=== PATIENT | male | born 2000 | race Two or more races ===

== ENCOUNTER 2024-06-27 19:31 | Emergency (ER) | payer MEDICARE, OTHER ==
[~2024-06-27] VITALS: Ht 180.3 cm; Wt 110.8 kg
[~2024-06-27 19:31] MED LIST: IBUP-1986 PO
[2024-06-27] MEDS: ondansetron 4mg rapidly disintigrating tab PO ONE (22:15)
[2024-06-27] MEDS: HYDROcodone/acetaminophen 5mg/325mg tablet PO ONE (22:16)
[2024-06-27] MEDS: amox tr/potassium clavulanate 875/125mg TAB PO ONE (22:20)
[2024-06-27] MEDS ORDERED: AMOX-115 PO (22:22)
[2024-06-27] MEDS ORDERED: HYDR-3965 PO (22:22)
[2024-06-27 22:23] VITALS: BP 142/76; PULSE 89; RESP 18; TEMP 98.6; O2SAT 99
== END 2024-06-27 22:28 | disposition home or self-care (01) ==
LOC: ER 19:31
DX: K08.89 Other specified disorders of teeth and supporting structures (principal); F12.90 Cannabis use, unspecified, uncomplicated; Z79.1 Long term (current) use of non-steroidal anti-inflammatories (NSAID)
CPT/HCPCS: 99284

== ENCOUNTER 2024-09-22 12:34 | Emergency (ER) | payer SELFPAY ==
[~2024-09-22] VITALS: Ht 180.3 cm; Wt 91.9 kg
[2024-09-22 12:50] VITALS: BP 135/73; PULSE 98; O2SAT 98
[2024-09-22 14:09] VITALS: RESP 17; TEMP 98.3
== END 2024-09-22 14:09 | disposition home or self-care (01) ==
LOC: ER 12:34
DX: J22 Unspecified acute lower respiratory infection (principal); J45.909 Unspecified asthma, uncomplicated; F12.90 Cannabis use, unspecified, uncomplicated; Z91.013 Allergy to seafood
CPT/HCPCS: 99282

== ENCOUNTER 2025-03-13 09:33 | Emergency (ER) | payer OTHER ==
[~2025-03-13] VITALS: Ht 180.3 cm; Wt 113.6 kg
[2025-03-13 09:40] VITALS: BP 128/97; PULSE 94; TEMP 97.7; O2SAT 100
--- NOTE | 2025-03-13 10:17 | Physician Documentation ---
History of Present Illness ~ Chief Complaint: Neck pain Stated Complaint: NECK PAIN Time Seen by MD: 13:41 Primary Medical Doctor: No PMD HPI This is a 25-year-old male who presents with right-sided neck pain onset suddenly after he popped his neck patient reports he does have history of some neck problems including a pinched nerve. Patient reports pain is worse when trying to turn his neck to the right. Patient reports some mild paresthesias to his fingertips. Patient reports no loss of bowel or bladder control or new weakness in extremities. Medication Reconciliation Allergies: Uncoded Allergies: SHELLFISH (Allergy, Intermediate, 06/27/24) PT STATES HE GETS ITCHY THROAT WHEN EATING, BUT DENIES ANAPHALAXIS Scheduled Cyclobenzaprine* (Cyclobenzaprine*), 1 TAB PO TID Ibuprofen (Ibuprofen), 1 TAB PO Q8H Ibuprofen (Ibuprofen), 1 TAB PO Q8H Lidocaine (Lidoderm), 1 PATCH TOP DAILY Past Medical History Past Medical History: No Pertinent History Past Surgical History: no surgical history Alcohol Use: Occasionally Drug Use: marijuana Lives In: Home Occupation: student Review of Systems ROS Right-sided neck pain as stated above in the HPI, otherwise all systems are reviewed and negative. Physical Exam Vital Signs: Temperature: 97.7, Source: Temporal, Heart Rate: 94, Respiratory Rate: 18, BP: 128/97, Pulse Oximetry: 100, Weight: 113.640 Oxygen Flow Rate: 0 Physical Exam VITALS: Reviewed and as above. GENERAL: Alert, nontoxic appearing, no apparent distress. HEENT: Mild tenderness to palpation to right upper aspect of neck, ROM of neck limited by pain, no central C-spine tenderness to palpation, no cervical lymp hadenopathy RESPIRATORY: No increased work of breathing, no respiratory distress, speaking in full clear sentences NEURO: Sensation and strength intact and equal in all limbs Progress Results/Orders Results/Orders Completed Orders - JARVIS SAM JUNIOR UNDERWRITER Ketorolac Trometh 15mg/Ml Vial (Toradol (03/13/25 13:35) Lidocaine 5% Patch (Lidoderm 5% Patch) (03/13/25 13:35) Cyclobenzaprine Tablet (Flexeril Tablet) (03/13/25 13:55) Medications Received in ER Medications (Trade) Dose Ordered Sig/Anabel Route PRN Reason Start Time Stop Time Status Last Admin Dose Admin (Toradol injection) 15 mg ONCE ONCE IM 03/13/25 13:35 03/13/25 13:36 DC 03/13/25 13:52 15 MG (Lidoderm 5% Patch) 1 patch ONCE ONCE TP 03/13/25 13:35 03/13/25 13:36 DC 03/13/25 13:53 1 PATCH (Flexeril tablet) 10 mg ONCE ONCE PO 03/13/25 13:55 03/13/25 13:56 DC 03/13/25 14:01 10 MG Vital Signs 03/13/25 03/13/25 09:40 13:52 Temp 97.7 Pulse 94 Resp 18 8 B/P (MAP) 128/97 Pulse Ox 100 O2 Flow Rate 0 Medical Decision Making Findings MSE performed in triage and patient returned to ED lobby by nursing staff This 25-year-old male presented with one day of right-sided neck pain without new onset of weakness or numbness in extremities, pain was reproducible with the patient turning his head to the neck and physical exam demonstrated some tenderness to palpation to the right lateral neck though no tenderness to palpation to central C-spine, patient is otherwise well-appearing and remainder of physical exam was benign. Suspect a soft tissue injury likely cervical muscle strain as the most likely cause of patient's pain though symptoms could also represent cervical radiculopathy or torticollis, patient medicated for pain. Patient is hemodynamically stable and appropriate for outpatient follow up, patient provided home care instructions and return to care precautions which he verbalized understanding of. Differential Dx:Considerations: Include: Cervical muscle spasm, Discitis, DJD, Meningitis, Torticollis, Vertebral artery dissect. Departure Disposition: HOME / SELF CARE / HOMELESS Impression: Primary Impression: Neck pain Condition: Improved Discharge Instructions: Cervical Sprain, Acute Torticollis, Adult Additional Instructions: As we discussed follow up with her primary care provider for possible referral for physical therapy. Please take the medications as prescribed, take the ibuprofen with food to avoid stomach upset, do not drive or operate heavy machinery while taking the muscle relaxer. Do not take the ibuprofen or thorax 12 hours as you received a Toradol injection in the emergency department which replaces in this medication. Please follow up with your primary care provider in the next few days. Please return to the emergency department for any new or worsening concerning symptoms including new numbness or weakness in your lying arms or legs or loss of bowel or bladder control. Departure Forms: Excuse form Work or School Excused From: Work Excuse beginning now through the following date: Mar 17, 2025 May Return but still avoid physical Activity from now until: Mar 17, 2025 May Return to full physical activity as of: Mar 17, 2025 Additional Instructions: Returned to work sooner if feeling better Referrals: NO PRIMARY CARE PROVIDER (PCP) Prescriptions Ibuprofen (Ibuprofen) 800 Mg Tablet 1 TAB PO Q8H for pain for 10 Days, #30 TAB 0 Refills Prov: JARVIS SAM 03/13/25 Lidocaine (Lidoderm) 5 % Adh..patch 1 PATCH TOP DAILY for 30 Days, #10 PATCH 0 Refills may wear up to 12 hours Prov: JARVIS SAM 03/13/25 Cyclobenzaprine* (Cyclobenzaprine*) 10 Mg Tablet 1 TAB PO TID, #15 TAB Prov: JARVIS SAM 03/13/25 Education Educated: Patient Educated regarding: diagnosis, treatment, prognosis, need for follow up Signature Scribe Signature: No scribe Attestation: The note accurately reflects work and decisions made by me.ELEAZAR Sullivan 03/13/25 20:48 JARVIS SAM Mar 13, 2025 10:17
[2025-03-13 13:52] VITALS: RESP 8
[2025-03-13] MEDS: ketorolac trometh 15mg/ml vial 15 MG/ML ML IM ONE (13:52)
[2025-03-13] MEDS: LIDOcaine 5% patch TP ONE (13:53)
[2025-03-13] MEDS ORDERED: IBUP-1986 PO (13:54)
[2025-03-13] MEDS ORDERED: CYCL-1 PO (13:54)
[2025-03-13] MEDS ORDERED: LIDO-52 TOP (13:54)
[2025-03-13] MEDS: cyclobenzaprine 10mg tablet PO ONE (14:01)
== END 2025-03-13 14:10 | disposition home or self-care (01) ==
LOC: ER 09:34
DX: M54.2 Cervicalgia (principal); R20.2 Paresthesia of skin; F12.90 Cannabis use, unspecified, uncomplicated
CPT/HCPCS: 96372; 99283; J1885